=== PATIENT | female | born 1940 | race Caucasian/White ===

== ENCOUNTER 2017-05-30 07:06 | Emergency (ER) | payer MEDICARE ==
--- NOTE | 2017-05-30 08:08 | EDM.PDOC ---
ED HPI GENERAL MEDICAL PROBLEM - General Chief Complaint: General Stated Complaint: FELL Time Seen by Provider: 05/30/17 07:55 Source of Information: Reports: Patient History Limitations: Reports: No Limitations - History of Present Illness INITIAL COMMENTS - FREE TEXT/NARRATIVE: This 76 yo female patient reports to the ED due to a fall at home, pain in her left flank and continued swelling in her lower extremities. The patient reports the pain in her left flank started at about 0500 and woke her up from sleep. The patient reports that when she got out of bed she "just fell to the ground." The patient does not know why she fell. The patient reports she normally has swelling in her lower extremities and the swelling may be a little worse. The patient denies any loss of consciousness before, during or after the fall. The patient did not hit her head. Onset: Today Onset Date: 05/30/17 Onset Time: 05:00 Duration: Resolved Prior to Arrival Location: Reports: Back (right flank/lower back) Severity: Mild Improves with: Reports: None Worsens with: Reports: None Context: Reports: Other (fall) Associated Symptoms: Reports: No Other Symptoms - Related Data Allergies Allergy/AdvReac Type Severity Reaction Status Date / Time Sulfa (Sulfonamide Allergy Rash Verified 05/30/17 07:25 Antibiotics) Home Meds: Home Meds Enalapril [Vasotec] 1 tab PO DAILY 09/26/16 [History] Furosemide [Lasix] 40 mg PO DAILY 09/26/16 [History] Levothyroxine Sodium [Levo-T] 75 mcg PO DAILY 09/26/16 [History] Potassium Chloride 20 meq PO DAILY 09/26/16 [History] hydrALAZINE HCl [Hydralazine HCl] 50 mg PO DAILY 09/26/16 [History] Acetaminophen/Diphenhydramine [Tylenol Pm Ex-Strength Caplet] 1 each PO BEDTIME 11/19/16 [History] Capecitabine [Xeloda] 1,500 mg PO BID 11/19/16 [History] Aspirin [Ecotrin] 81 mg PO DAILY 05/30/17 [History] Metoprolol Succinate [Toprol XL] 50 mg PO DAILY 05/30/17 [History] Past Medical History HEENT History: Reports: Impaired Vision Cardiovascular History: Reports: High Cholesterol, Hypertension 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 Endocrine/Metabolic History: Reports: Hypothyroidism Hematologic History: Reports: Blood Transfusion(s) Oncologic (Cancer) History: Reports: Breast, Liver Other Oncologic History: spine - Infectious Disease History Infectious Disease History: Reports: Chicken Pox, Measles, Mumps, Rubella, Shingles - Past Surgical History HEENT Surgical History: Reports: Tonsillectomy Endocrine Surgical History: Reports: None Social & Family History - Family History Family Medical History: Noncontributory - Tobacco Use Smoking Status *Q: Never Smoker - Caffeine Use Caffeine Use: Reports: Coffee, Tea - Recreational Drug Use Recreational Drug Use: No ED ROS GENERAL - Review of Systems Review Of Systems: ROS reveals no pertinent complaints other than HPI. ED EXAM, GENERAL - Physical Exam Exam: See Below Exam Limited By: No Limitations General Appearance: Alert, WD/WN, No Apparent Distress Eye Exam: Bilateral Eye: EOMI, Normal Inspection, PERRL Ears: Normal External Exam, Normal Canal, Hearing Grossly Normal, Normal TMs Nose: Normal Inspection, Normal Mucosa, No Blood Throat/Mouth: Normal Inspection, Normal Lips, Normal Teeth, Normal Gums, Normal Oropharynx, Normal Voice, No Airway Compromise Head: Atraumatic, Normocephalic Neck: Normal Inspection, Supple, Non-Tender, Full Range of Motion Respiratory/Chest: No Respiratory Distress, Lungs Clear, Normal Breath Sounds, No Accessory Muscle Use, Chest Non-Tender Cardiovascular: Normal Peripheral Pulses, Regular Rate, Rhythm, No Edema, No Gallop, No JVD, No Rub, Systolic Murmur (Grade 1/6) GI/Abdominal: Normal Bowel Sounds, Soft, Non-Tender, No Organomegaly, No Distention, No Abnormal Bruit, No Mass (Female) Exam: Deferred Rectal (Female) Exam: Deferred Back Exam: Normal Inspection, Full Range of Motion, Paraspinal Tenderness ( right lower back) Extremities: Normal Range of Motion, Non-Tender, Normal Capillary Refill, Pedal Edema (bilateral ) Neurological: Alert, Oriented, CN II-XII Intact, Normal Cognition, Normal Gait, Normal Reflexes, No Motor/Sensory Deficits Psychiatric: Normal Affect, Normal Mood Skin Exam: Warm, Dry, Intact, Normal Color, No Rash Lymphatic: No Adenopathy Course - Vital Signs Last Recorded V/S: Last Vital Signs Temp 37.2 C 05/30/17 12:24 Pulse 98 05/30/17 12:24 Resp 18 05/30/17 12:24 BP 138/53 L 05/30/17 12:24 Pulse Ox 98 05/30/17 12:24 - Orders/Labs/Meds Labs: Laboratory Tests 05/30/17 05/30/17 05/30/17 Range/Units 07:52 08:05 08:05 WBC 3.5 L (5.0-10.0) 10^3/uL RBC 3.20 L (4.2-5.4) 10^6/uL Hgb 11.0 L (12.0-16.0) g/dL Hct 33.3 L (37.0-47.0) % MCV 104.1 H (80-100) fL MCH 34.4 H (27.0-34.0) pg MCHC 33.0 (33.0-35.0) g/dL Plt Count 235 (150-450) 10^3/uL Neut % (Auto) 41.4 L (42.2-75.2) % Lymph % (Auto) 17.7 L (20.5-50.1) % Phillips % (Auto) 40.3 H (2-8) % Eos % (Auto) 0.0 L (1.0-3.0) % Baso % (Auto) 0.6 (0.0-1.0) % Add Manual Diff Yes Neutrophils % (Manual) 49 % Lymphocytes % (Manual) 14 % Monocytes % (Manual) 37 % Sodium 132 L (135-145) mmol/L Potassium 3.1 L (3.6-5.0) mmol/L Chloride 89 L (101-111) mmol/L Carbon Dioxide 27.0 (21.0-31.0) mmol/L Anion Gap 19.1 BUN 14 (7-18) mg/dL Creatinine 1.3 (0.6-1.3) mg/dL Est Cr Clr Drug Dosing 29.50 mL/min Estimated GFR (MDRD) 40 BUN/Creatinine Ratio 10.76 Glucose 169 H (74-105) mg/dL Calcium 8.9 (8.4-10.2) mg/dl Total Bilirubin 0.9 (0.2-1.0) mg/dL AST 36 (10-42) IU/L ALT 22 (10-60) IU/L Alkaline Phosphatase 78 (42-121) IU/L Troponin I 0.09 H* (0.00-0.02) ng/ml B-Natriuretic Peptide (0-100) pg/ml Total Protein 6.4 L (6.7-8.2) g/dl Albumin 3.5 (3.2-5.5) g/dl Globulin 2.9 Albumin/Globulin Ratio 1.21 Urine Color Straw (YELLOW) Urine Appearance Clear (CLEAR) Urine pH 7.5 (5.0-9.0) Ur Specific [place] 1.015 (1.005-1.030) Urine Protein 100 H (NEGATIVE) Urine Glucose (UA) Negative (NEGATIVE) Urine Ketones Negative (NEGATIVE) Urine Occult Blood Negative (NEGATIVE) Urine Nitrite Negative (NEGATIVE) Urine Bilirubin Negative (NEGATIVE) Urine Urobilinogen 1.0 (0.2-1.0) mg/dL Ur Leukocyte Esterase Negative (NEGATIVE) Urine RBC 0-5 /HPF Urine WBC 0-5 (0-5/HPF) /HPF Ur Epithelial Cells Moderate H /HPF Urine Bacteria Few (0-FEW/HPF) /HPF Urine Mucus Few H /LPF 05/30/17 05/30/17 Range/Units 08:05 12:11 WBC (5.0-10.0) 10^3/uL RBC (4.2-5.4) 10^6/uL Hgb (12.0-16.0) g/dL Hct (37.0-47.0) % MCV (80-100) fL MCH (27.0-34.0) pg MCHC (33.0-35.0) g/dL Plt Count (150-450) 10^3/uL Neut % (Auto) (42.2-75.2) % Lymph % (Auto) (20.5-50.1) % Phillips % (Auto) (2-8) % Eos % (Auto) (1.0-3.0) % Baso % (Auto) (0.0-1.0) % Add Manual Diff Neutrophils % (Manual) % Lymphocytes % (Manual) % Monocytes % (Manual) % Sodium (135-145) mmol/L Potassium (3.6-5.0) mmol/L Chloride (101-111) mmol/L Carbon Dioxide (21.0-31.0) mmol/L Anion Gap BUN (7-18) mg/dL Creatinine (0.6-1.3) mg/dL Est Cr Clr Drug Dosing mL/min Estimated GFR (MDRD) BUN/Creatinine Ratio Glucose (74-105) mg/dL Calcium (8.4-10.2) mg/dl Total Bilirubin (0.2-1.0) mg/dL AST (10-42) IU/L ALT (10-60) IU/L Alkaline Phosphatase (42-121) IU/L Troponin I 0.09 H* (0.00-0.02) ng/ml B-Natriuretic Peptide 143 H (0-100) pg/ml Total Protein (6.7-8.2) g/dl Albumin (3.2-5.5) g/dl Globulin Albumin/Globulin Ratio Urine Color (YELLOW) Urine Appearance (CLEAR) Urine pH (5.0-9.0) Ur Specific [place] (1.005-1.030) Urine Protein (NEGATIVE) Urine Glucose (UA) (NEGATIVE) Urine Ketones (NEGATIVE) Urine Occult Blood (NEGATIVE) Urine Nitrite (NEGATIVE) Urine Bilirubin (NEGATIVE) Urine Urobilinogen (0.2-1.0) mg/dL Ur Leukocyte Esterase (NEGATIVE) Urine RBC /HPF Urine WBC (0-5/HPF) /HPF Ur Epithelial Cells /HPF Urine Bacteria (0-FEW/HPF) /HPF Urine Mucus /LPF Meds: Medications Discontinued Medications Generic Name Dose Route Start Last Admin Trade Name Romeq PRN Reason Stop Dose Admin Potassium Chloride 10 meq/ 100 mls @ 100 mls/hr 05/30/17 08:37 05/30/17 08:55 Premix IV 05/30/17 09:36 100 mls/hr ONETIME ONE Administration Sodium Chloride 1,000 mls @ 250 mls/hr 05/30/17 08:37 05/30/17 08:55 Normal Saline IV 05/30/17 12:36 250 mls/hr .BOLUS ONE Administration Penicillin G Procaine/Benzathine 1.2 millunits 05/30/17 09:16 05/30/17 09:53 Bicillin C-R 600/600 IM 05/30/17 09:17 1.2 millunits ONETIME ONE Administration - Re-Assessments/Exams Free Text/Narrative Re-Assessment/Exam: 05/30/17 08:47 The patient and family were advised of the examination, lab and EKG results. The patient was informed that she was going to be watched with a repeat EKG and lab work done at noon. The patient's family reports that the patient has been complaining of a sore throat over the past 3-4 days also (a rapid strep screen was ordered). The patient will be given IV fluids and IV potassium during the stay. 05/30/17 09:18 The patient's strep test was positive. An order was placed for Bicillin. This order was relayed to nursing staff on the floor. Departure - Departure Time of Disposition: 13:00 Disposition: Home, Self-Care 01 Condition: Fair Clinical Impression: Strep pharyngitis, Fall from ground level, Hypokalemia Low back pain Qualifiers: Chronicity: acute Back pain laterality: right Sciatica presence: unspecified whether sciatica present Qualified Code(s): M54.5 - Low back pain - Discharge Information Instructions: Strep Throat, [id number], Back Pain, Adult, Hypokalemia Referrals: Ana Luisa Blake PA [Primary Care Provider] - Forms: ED Department Discharge Care Plan Goals: The patient and family were advised of the examination, lab, EKG, repeat lab and repeat EKG results during the visit. The patient was given an injection of Bicillin for strep, IV fluid, and IV Potassium while in the ED. The patient was discharged with a script for Azithromycin (250 mg) to take 2 by mouth on day 1 and 1 by mouth days 2-5. If the patient has any additional symptoms or concerns , the patient should follow-up with her primary care provider or return to the emergency department.
[2017-05-30] MEDS ORDERED: Sodium Chloride 0.9% 1,000 ML IV ONE (08:37)
[2017-05-30] MEDS ORDERED: Potassium Chloride 10 MEQ in Premix Bag 1 BAG IV ONE (08:37)
[2017-05-30] MEDS ORDERED: Penicillin G Benzathine/Procaine 600-600 1.2 Millunits/2 ML Syringe IM ONE (09:16)
[2017-05-30 13:45] VITALS: BP 122/52
--- NOTE | 2017-05-30 15:28 | EKG ---
05/30/2017 - ALIZA JULIAN - EKG shows sinus rhythm. 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 Nonspecific T-wave abnormalities. [facility] /[id number]
--- NOTE | 2017-06-01 11:29 | EKG ---
05/30/2017 - ALIZA JULIAN - TIME: 8:03 p.m. EKG shows normal sinus rhythm. 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 Nonspecific T-wave abnormalities in inferior leads. [facility] /[id number]
--- NOTE | 2017-06-01 11:32 | EKG ---
05/30/2017 - ALIZA JULIAN - TIME: 12:12 p.m. EKG shows normal sinus rhythm. T-wave inversion in inferior leads. [facility] /[id number]
--- NOTE | 2017-06-02 12:26 | EKG ---
05/30/2017 - ALIZA JULIAN - TIME: 12:12 p.m. EKG shows sinus rhythm with rate of 97 per minute. Nonspecific T-wave abnormalities. [facility] /[id number]
--- NOTE | 2017-06-02 12:26 | EKG ---
05/30/2017 - ALIZA JULIAN - TIME: 8:03 a.m. EKG shows normal sinus rhythm. Nonspecific T-wave abnormality. 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 [facility] /[id number]
--- NOTE | 2017-06-02 13:35 | EKG ---
05/30/2017 - ALIZA JULIAN - TIME: 1049 hours. This is actually a telemetry report. It shows normal sinus rhythm. [facility] /[id number]
== END 2017-05-30 13:44 | disposition home or self-care (01) ==
LOC: DL.ED 07:06
DX: J02.0 Streptococcal pharyngitis (principal); E87.6 Hypokalemia; M54.5 Low back pain; I10 Essential (primary) hypertension; E78.00 Pure hypercholesterolemia, unspecified; M19.90 Unspecified osteoarthritis, unspecified site; E03.9 Hypothyroidism, unspecified; Z98.890 Other specified postprocedural states; Z79.899 Other long term (current) drug therapy; Z79.82 Long term (current) use of aspirin; Z88.2 Allergy status to sulfonamides; W19.XXXA Unspecified fall, initial encounter
CPT/HCPCS: 36415; 80053; 81001; 83880; 84484; 85025; 87430; 93005; 96365; 96372; 99284; J0558; J3480; J7030; 93010

== ENCOUNTER 2017-06-17 12:50 | Emergency (ER) | payer MEDICARE ==
--- NOTE | 2017-06-17 13:23 | EDM.PDOC ---
[id number] 4d CHEMO, NOT EATING X 3 DAYS Time Seen by Provider: 06/17/17 13:23 Source of Information: Reports: Patient, Old Records, RN, RN Notes Reviewed History Limitations: Reports: No Limitations - History of Present Illness INITIAL COMMENTS - FREE TEXT/NARRATIVE: C/O 3 days of generalized weakness, mouth pain, sore throat, loss of appetite, and generalized "unwell" felling. Pt has Hx of metastatic breast cancer with mets to bone and liver. Onset: Gradual Onset Date: 06/14/17 Duration: Constant, Getting Worse Location: Reports: Generalized Severity: Severe Improves with: Reports: None Worsens with: Reports: None Associated Symptoms: Reports: No Other Symptoms - Related Data Allergies Allergy/AdvReac Type Severity Reaction Status Date / Time Sulfa (Sulfonamide Allergy Rash Verified 05/30/17 07:25 Antibiotics) Home Meds: Home Meds Enalapril [Vasotec] 1 tab PO DAILY 09/26/16 [History] Furosemide [Lasix] 40 mg PO DAILY 09/26/16 [History] Levothyroxine Sodium [Levo-T] 75 mcg PO DAILY 09/26/16 [History] Potassium Chloride 20 meq PO DAILY 09/26/16 [History] hydrALAZINE HCl [Hydralazine HCl] 50 mg PO DAILY 09/26/16 [History] Acetaminophen/Diphenhydramine [Tylenol Pm Ex-Strength Caplet] 1 each PO BEDTIME 11/19/16 [History] Capecitabine [Xeloda] 1,500 mg PO BID 11/19/16 [History] Aspirin [Ecotrin] 81 mg PO DAILY 05/30/17 [History] Metoprolol Succinate [Toprol XL] 50 mg PO DAILY 05/30/17 [History] Past Medical History HEENT History: Reports: Impaired Vision Cardiovascular History: Reports: High Cholesterol, Hypertension 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 Endocrine/Metabolic History: Reports: Hypothyroidism Hematologic History: Reports: Blood Transfusion(s) Oncologic (Cancer) History: Reports: Breast, Liver Other Oncologic History: spine - Infectious Disease History Infectious Disease History: Reports: Chicken Pox, Measles, Mumps, Rubella, Shingles - Past Surgical History HEENT Surgical History: Reports: Tonsillectomy Endocrine Surgical History: Reports: None Social & Family History - Family History Family Medical History: Noncontributory - Tobacco Use Smoking Status *Q: Never Smoker - Caffeine Use Caffeine Use: Reports: Coffee, Tea - Recreational Drug Use Recreational Drug Use: No - Living Situation & Occupation Living situation: Reports: , with Spouse Occupation: Retired ED ROS GENERAL - Review of Systems Review Of Systems: ROS reveals no pertinent complaints other than HPI. ED EXAM, GENERAL - Physical Exam Exam: See Below Exam Limited By: No Limitations General Appearance: Alert, Other (chronically ill appearing) Eye Exam: Bilateral Eye: Normal Inspection Ears: Normal External Exam, Hearing Grossly Normal Nose: Normal Inspection, Normal Mucosa, No Blood Throat/Mouth: Normal Lips, Normal Voice, No Airway Compromise, Other (white intraoral plaques consistent with candadiasis, pharyngeal erythema) Head: Atraumatic, Normocephalic Neck: Normal Inspection, Supple, Non-Tender, Full Range of Motion Respiratory/Chest: No Respiratory Distress, Lungs Clear, No Accessory Muscle Use , Decreased Breath Sounds Cardiovascular: Normal Peripheral Pulses, Regular Rate, Rhythm GI/Abdominal: Normal Bowel Sounds, Soft, Non-Tender, No Distention, No Abnormal Bruit Extremities: Normal Inspection Neurological: Alert, Oriented, No Motor/Sensory Deficits Psychiatric: Normal Mood Skin Exam: Warm, Dry, Intact, Normal Color, No Rash Course - Vital Signs Last Recorded V/S: Last Vital Signs Temp 36.8 C 06/17/17 13:29 Pulse 94 06/17/17 13:29 Resp 14 06/17/17 13:29 BP 110/70 06/17/17 13:29 Pulse Ox 98 06/17/17 13:29 - Orders/Labs/Meds Orders: Active Orders 24 hr Category Date Time Status Peripheral IV Care [RC] . DIRECTED Care 06/17/17 13:40 Active CULTURE BLOOD [BC] Stat Lab 06/17/17 13:50 Received CULTURE BLOOD [BC] Stat Lab 06/17/17 13:59 Received Blood Culture x2 Reflex Set [OM.PC] Stat Oth 06/17/17 13:40 Ordered Peripheral IV Insertion Adult [OM.PC] Stat Oth 06/17/17 13:40 Ordered Labs: Laboratory Tests 06/17/17 06/17/17 Range/Units 13:59 13:59 WBC 0.9 L* (5.0-10.0) 10^3/uL RBC 3.39 L (4.2-5.4) 10^6/uL Hgb 11.3 L (12.0-16.0) g/dL Hct 34.1 L (37.0-47.0) % MCV 100.6 H (80-100) fL MCH 33.3 (27.0-34.0) pg MCHC 33.1 (33.0-35.0) g/dL Plt Count 242 (150-450) 10^3/uL Neut % (Auto) 26.1 L (42.2-75.2) % Lymph % (Auto) 42.4 (20.5-50.1) % [place] % (Auto) 29.3 H (2-8) % Eos % (Auto) 0.0 L (1.0-3.0) % Baso % (Auto) 2.2 H (0.0-1.0) % Add Manual Diff Yes Neutrophils % (Manual) 18 % Band Neutrophils % 8 % Lymphocytes % (Manual) 38 % Monocytes % (Manual) 36 % Nucleated RBCs 5 /100WBC Vacuolated Monocytes Few Toxic Granulation 1+ slight Dohle Bodies 1+ slight Platelet Estimate Adequate Giant Platelets Few Basophilic Stippling 1+ slight Macrocytosis 1+ slight Sodium 131 L (135-145) mmol/L Potassium 3.0 L (3.6-5.0) mmol/L Chloride 84 L (101-111) mmol/L Carbon Dioxide 33.0 H (21.0-31.0) mmol/L Anion Gap 17.0 BUN 14 (7-18) mg/dL Creatinine 1.2 (0.6-1.3) mg/dL Est Cr Clr Drug Dosing 7.08 mL/min Estimated GFR (MDRD) 43 BUN/Creatinine Ratio 11.66 Glucose 152 H (74-105) mg/dL Calcium 9.9 (8.4-10.2) mg/dl Total Bilirubin 1.0 (0.2-1.0) mg/dL AST 41 (10-42) IU/L ALT 22 (10-60) IU/L Alkaline Phosphatase 76 (42-121) IU/L Total Protein 6.5 L (6.7-8.2) g/dl Albumin 3.6 (3.2-5.5) g/dl Globulin 2.9 Albumin/Globulin Ratio 1.24 Meds: Medications Discontinued Medications Generic Name Dose Route Start Last Admin Trade Name James PRN Reason Stop Dose Admin Sodium Chloride 1,000 mls @ 999 mls/hr 06/17/17 13:40 06/17/17 14:04 Normal Saline IV 06/17/17 14:40 999 mls/hr .BOLUS ONE Administration Potassium Chloride 10 meq/ 100 mls @ 100 mls/hr 06/17/17 15:49 06/17/17 16:11 Premix IV 06/17/17 16:48 100 mls/hr ONETIME ONE Administration Nystatin 10 ml 06/17/17 13:41 06/17/17 14:05 Mycostatin PO 06/17/17 13:42 10 ml ONETIME ONE Administration Nystatin Confirm 06/17/17 14:06 06/17/17 16:13 Mycostatin Administered 06/17/17 14:07 Not Given Dose 5 ml .ROUTE .STK-MED ONE Penicillin G Procaine/Benzathine 1.2 millunits 06/17/17 15:43 06/17/17 16:13 Bicillin C-R 600/600 IM 06/17/17 15:44 1.2 millunits ONETIME ONE Administration Sodium Chloride 10 ml 06/17/17 13:40 Saline Flush FLUSH ASDIRECTED PRN Keep Vein Open Departure - Departure Time of Disposition: 15:54 Disposition: DC/Tfer to [facility] 02 Condition: Critical Clinical Impression: Neutropenic fever, Strep pharyngitis, History of breast cancer, Oral candidiasis, Hypokalemia, Dehydration - Discharge Information Forms: ED Department Discharge, Interfacility Transfer EMTALA - My Orders Last 24 Hours: My Active Orders 06/17/17 13:40 Peripheral IV Care [RC] . DIRECTED Blood Culture x2 Reflex Set [OM.PC] Stat Peripheral IV Insertion Adult [OM.PC] Stat 06/17/17 13:50 CULTURE BLOOD [BC] Stat 06/17/17 13:59 CULTURE BLOOD [BC] Stat - Assessment/Plan Last 24 Hours: My Active Orders 06/17/17 13:40 Peripheral IV Care [RC] . DIRECTED Blood Culture x2 Reflex Set [OM.PC] Stat Peripheral IV Insertion Adult [OM.PC] Stat 06/17/17 13:50 CULTURE BLOOD [BC] Stat 06/17/17 13:59 CULTURE BLOOD [BC] Stat
[2017-06-17 13:37] VITALS: BP 110/70
[2017-06-17] MEDS ORDERED: Sodium Chloride 0.9% 10 ML Syringe FLUSH PRN (13:40)
[2017-06-17] MEDS ORDERED: Sodium Chloride 0.9% 1,000 ML IV ONE (13:40)
[2017-06-17] MEDS ORDERED: Nystatin Susp 100,000 Unit/ML 5 ML UD Cup PO ONE (13:41)
[2017-06-17] MEDS ORDERED: Nystatin Susp 100,000 Unit/ML 5 ML UD Cup ONE (14:06)
[2017-06-17] MEDS ORDERED: Penicillin G Benzathine/Procaine 600-600 1.2 Millunits/2 ML Syringe IM ONE (15:43)
[2017-06-17] MEDS ORDERED: Potassium Chloride 10 MEQ in Premix Bag 1 BAG IV ONE (15:49)
== END 2017-06-17 16:48 ==
LOC: DL.ED 12:50
DX: J02.0 Streptococcal pharyngitis (principal); D70.9 Neutropenia, unspecified; R50.81 Fever presenting with conditions classified elsewhere; B37.0 Candidal stomatitis; E87.6 Hypokalemia; E86.0 Dehydration; R63.0 Anorexia; H54.7 Unspecified visual loss; E78.00 Pure hypercholesterolemia, unspecified; I10 Essential (primary) hypertension; M19.90 Unspecified osteoarthritis, unspecified site; E03.9 Hypothyroidism, unspecified; Z88.2 Allergy status to sulfonamides; Z79.899 Other long term (current) drug therapy; Z79.82 Long term (current) use of aspirin; Z98.890 Other specified postprocedural states
CPT/HCPCS: 36415; 80053; 85025; 87040; 87430; 96361; 96365; 96372; 99284; A9270; J0558; J3480; J7030